=== PATIENT | female | born 1990 | race Caucasian/White ===

== ENCOUNTER → 2017-03-13 | Outpatient (CLI) | payer OTHER ==
--- NOTE | 2017-03-13 14:27 | KCIC ---
OB ultrasound greater than 14 weeks to include transabdominal and transvaginal imaging 03/13/2017 CLINICAL HISTORY: Supervision of high risk . The patient took hormones to get . TECHNIQUE: Using the distended urinary bladder as a sonographic window, a real-time ultrasound examination of the gravid uterus was performed. Additionally to better evaluate the inferior edge of the placenta, a transvaginal pelvic ultrasound was performed. Multiple images were obtained. FINDINGS: No previous imaging studies are available for comparison. There is a single living IUP. The fetus is in a cephalic position. cardiac and somatic activity is seen. The heart rate is 133 bpm. The amniotic fluid volume is within normal limits. The GOOD measures 14.6 cm. The maternal cervix is closed. It measures 4.12 cm in length. Neither maternal ovary is visualized. The placenta is anterior. The inferior edge of the placenta extends to the margin of the internal cervical os. This is consistent with a marginal placenta previa. No focal abnormality of the placenta is seen. The following measurements were obtained: BPD 5.27 cm 22 weeks 0 days. HC 19.83 cm 22 weeks 0 days AC 17.36 cm 22 weeks 2 days FL 2.89 cm 22 weeks 3 days The estimated gestational age by ultrasound is 22 weeks 1 day plus or minus the standard deviation of 10 days. The estimated date of delivery by ultrasound is 07/16/2017. The estimated weight is 495 g +/- 73 g (1 lb. 1 oz.). No abnormality is visualized. The brain to include the posterior fossa, face, four-chamber heart, kidneys, spine, all 4 extremities, three-vessel cord and abdominal cord insertion, urinary bladder, stomach and kidneys are well-visualized and are within normal limits. IMPRESSION: 1. Single living IUP with an estimated gestational age by ultrasound of 22 weeks 1 day plus or minus a standard deviation of 10 days. The estimated date of delivery by ultrasound is 07/16/2017. 2. Findings are seen consistent with a marginal placenta previa. A follow-up ultrasound later in this to reevaluate position of the placenta is recommended. Electronically signed by: Arnel Corley MD (03/13/2017 2:24 PM)
== END | disposition home or self-care (01) ==
LOC: KCIC US 08:40
PROVIDERS: ATTEND Family Medicine
DX: O26.892 Other specified pregnancy related conditions, second trimester (principal); Z3A.22 22 weeks gestation of pregnancy
CPT/HCPCS: 76805; 76817

== ENCOUNTER → 2017-04-14 | Outpatient (CLI) | payer OTHER ==
--- NOTE | 2017-04-14 11:57 | KCIC ---
INDICATION: Follow-up marginal placenta. TECHNIQUE: Limited OB ultrasound was performed and compared to a study from March 13, 2017. Study includes both transabdominal imaging and transvaginal imaging to better evaluate the edge of the placenta is relationship with the internal cervical os. FINDINGS: There is a single intrauterine gestation in breech presentation. The placenta is anterior in location. Placental edge is 1 cm from the internal cervical os. There is also a potential succenturiate placenta also within 1 cm of the internal cervical os. The cervix measures over 4 cm in length without funneling. GOOD measured 16.1 cm. This value is within normal limits. Biometrical data is as follows: BPD = 6.78 cm, with a corresponding gestational age of 27 weeks 2 days. HC = 24.76 cm, with a corresponding gestational age of 26 weeks 6 days. AC = 22.62 cm, with a corresponding gestational age of 27 weeks 0 days. FL = 5.04 cm, with a corresponding gestational age of 27 weeks 0 days. Ratio of head circumference to abdominal circumference is 1.09. Cephalic index is 90 percent, mildly elevated. Overall, the estimated sonographic gestational age is 27 weeks 0 days for an estimated date of delivery of July 14, 2017. Estimated weight is 1018 g. Full survey was not performed. heart tones are 135 bpm. IMPRESSION: 1. Placenta edge remains within 1 cm of the internal cervical os compatible with marginal placenta. Continued follow-up to demonstrate migration of the placental edge away from the internal cervical os would be recommended. 2. Possible succenturiate placenta, also within a centimeter of the internal cervical os. Electronically signed by: Hernán Spaulding MD (04/14/2017 11:54 AM) [id number]
== END | disposition home or self-care (01) ==
LOC: KCIC US 08:50
PROVIDERS: ATTEND Family Medicine
DX: O44.22 Partial placenta previa NOS or without hemorrhage, second trimester (principal); O32.1XX0 Maternal care for breech presentation, not applicable or unspecified; Z3A.27 27 weeks gestation of pregnancy
CPT/HCPCS: 76816

== ENCOUNTER → 2017-05-21 | Outpatient (CLI) | payer OTHER ==
--- NOTE | 2017-05-21 13:34 | KCIC ---
OB FOLLOW UP History: Marginal placenta previa follow-up Comparison: April 14, 2017 Findings: Multiple transabdominal sonographic images of the pelvis are submitted. There is a single intrauterine fetus in cephalic presentation. Amniotic fluid volume is within normal limits, estimated GOOD 15.5 cm. There is anterior placenta. There is detectable cardiac activity 133 bpm. anatomy is not fully evaluated on this exam. Maternal adnexal regions are not demonstrated. Biometry data are as follows: Biparietal diameter 7.93 cm corresponds with 31 weeks 6 days, 28th percentile Head circumference 29.2 cm corresponds with 32 weeks 1 day, 13th percentile Abdominal circumference 29.19 cm corresponds with 33 weeks 1 day, 75th percentile. Femur length 6.31 cm corresponds with 32 weeks 4 days, 47th percentile. HC/AC ratio 1.00 within normal limits. Adjusted ultrasound age 32 weeks 3 days with estimated delivery date of 07/13/2017. LMP age is 32 weeks 2 days with estimated delivery date of 07/14/2017. Estimated weight 2053 g +/- 304 g corresponding with the 51st percentile. Comparing with the previous exam, there has been adequate interval growth. Transvaginal ultrasound: Multiple transvaginal sonographic images of pelvis are submitted. Cervix measured 4.7 cm in length. No placenta previa is demonstrated. No free fluid is demonstrated. Impression: 1. No placenta previa is demonstrated. There is cephalic presentation of the single intrauterine fetus, adequate interval growth compared with the previous exam. Electronically signed by: Billy Mckinney MD (05/21/2017 1:31 PM) [id number]
== END | disposition home or self-care (01) ==
LOC: KCIC US 09:44
PROVIDERS: ATTEND Family Medicine
DX: O44.23 Partial placenta previa NOS or without hemorrhage, third trimester (principal); Z3A.32 32 weeks gestation of pregnancy
CPT/HCPCS: 76816

== ENCOUNTER → 2017-07-06 | Outpatient (CLI) | payer OTHER ==
--- NOTE | 2017-07-06 17:36 | RAD ---
Obstetrical ultrasound-Limited, 07/06/2017: History: Confirm presentation There is a single intrauterine fetus in a cephalic orientation. The biparietal diameter measures 9.2 cm compatible with a gestational age of 37-38 weeks. The femur length measurement suggests a gestational age of 38-39 weeks. The average gestational age based on all of the measurements is 38 weeks and 4 days yielding a sonographic EDC of 07/16/2017. This correlates well with the original ultrasound exam of 03/13/2017. Normal activity and heart motion were seen. The weight was estimated at 8 pounds and 1 ounce +/- 19 ounces. The head to abdominal circumference ratio is within normal limits. A full survey was not attempted at this time. The amniotic fluid volume appears to be within normal limits, although an GOOD was not measured on today's exam. The placenta lies anteriorly. The cervix was not adequately delineated due to obscuration by the overlying head. IMPRESSION: Single viable intrauterine fetus in a cephalic orientation.
== END | disposition home or self-care (01) ==
LOC: US 15:33
PROVIDERS: ATTEND Family Medicine
DX: Z34.83 Encounter for supervision of other normal pregnancy, third trimester (principal); Z3A.38 38 weeks gestation of pregnancy
CPT/HCPCS: 76815